=== PATIENT | female | born 1955 | race Caucasian/White ===

== ENCOUNTER 2016-12-31 20:34 | Emergency (ER) | payer BC ==
[2016-12-31 21:04] VITALS: BP 104/63; PULSE 67; TEMP 98.2; BMI 20.6
[2016-12-31] MEDS ORDERED: KETOROLAC TROMETHAMINE 60 MG/2 ML VIAL ONE ×2 (21:21→21:45)
[2016-12-31] MEDS ORDERED: KETOROLAC TROMETHAMINE 60 MG/2 ML VIAL IM ONE (21:42)
--- NOTE | 2016-12-31 21:52 | PDOC ---
History of Present Illness - General Chief Complaint: Pain Stated Complaint: RIGTH RIBCAGE PAIN Time Seen by Provider: 12/31/16 21:15 - History of Present Illness Initial Comments: 12/31/16 21:41 Patient complains of right rib chest wall pain. States was reaching to protect infant granddaughter when she slipped and fell landing with her right mid rib midaxillary line against edge of the sofa. Patient has had severe rib pain since that time with difficulty taking deep inspiration. Denies shortness of breath, no other injury. Occurred: reports: last week Severity: reports: moderate Pain Location: reports: chest Method of Injury: Yes: fall Loss of Consciousness: no loss of consciousness Associated Symptoms (Fall): chest pain Past History - Travel Traveled outside of the country in the last 30 days: No Close contact w/someone who was outside of country & ill: No - Past Medical History Allergies/Adverse Reactions: Allergies Allergy/AdvReac Type Severity Reaction Status Date / Time No Known Allergies Allergy Verified 12/31/16 21:00 Home Medications: Ambulatory Orders Oxycodone HCl/Acetaminophen [Percocet 5-325 mg Tablet -] 1 - 2 tab PO Q4H PRN # 14 tablet MDD 4 12/31/16 Other medical history: Pt denies - Psycho/Social/Smoking Cessation Hx Suicidal Ideation: No Smoking History: Never smoked Information on smoking cessation initiated: No Hx Alcohol Use: No Drug/Substance Use Hx: No Substance Use Type: None Review of Systems - Review of Systems Able to Perform ROS?: Yes Is the patient limited Kiswahili proficient: Yes Constitutional: Yes: Symptoms Reported, See HPI, Malaise. No: Chills, Fever HEENTM: Yes: See HPI. No: Symptoms Reported Respiratory: Yes: Symptoms reported, See HPI, Other (pain to right chest wall ) ABD/GI: No: Symptoms Reported Musculoskeletal: Yes: Symptoms Reported, See HPI, Muscle Pain Integumentary: Yes: Symptoms Reported, See HPI, Bruising All Other Systems: Reviewed and Negative *Physical Exam - Vital Signs Last Vital Signs Temp Pulse Resp BP Pulse Ox 98.2 F 67 18 104/63 100 12/31/16 21:01 12/31/16 21:01 12/31/16 21:01 12/31/16 21:01 12/31/16 21:01 - Physical Exam General Appearance: Yes: Nourished, Appropriately Dressed, Apparent Distress, Moderate Distress HEENT: positive: KALYN, Normal ENT Inspection, Normal Voice, TMs Normal, Pharynx Normal Neck: positive: Supple. negative: Tender Respiratory/Chest: positive: Chest Tender, Lungs Clear. negative: Normal Breath Sounds (difficult to take deep inspirations secondary to exquisite pain to right mid axillary line chest wall. Has reproduced tenderness along rib border 678 without crepitus or step-offs noted.), Respiratory Distress Cardiovascular: positive: Regular Rhythm Musculoskeletal: positive: Normal Inspection Extremity: positive: Normal Capillary Refill, Normal Inspection, Normal Range of Motion Integumentary: positive: Normal Color, Bruising (faint bruising noted under right breast lateral aspect). negative: Ecchymosis Neurologic: positive: garland maker II-XII NML intact, Fully Oriented, Alert, Normal Response, Motor Strength / ED Treatment Course - RADIOLOGY Radiology Studies Ordered: Category Date Time Status RIBS RIGHT SIDE [RAD] Stat Radiology 12/31/16 21:16 Ordered Progress Note - Progress Note Progress Note: Eighth rib fracture right side nondisplaced, will treat with Percocet rest, *DC/Admit/Observation/Transfer Diagnosis at time of Disposition: Rib fracture Qualifiers: Encounter type: initial encounter Rib fracture type: single rib Fracture type: closed Laterality: right Qualified Code(s): S22.31XA - Fracture of one rib, right side, initial encounter for closed fracture - Discharge Dispostion Disposition: HOME Condition at time of disposition: Stable Admit: No - Patient Instructions Printed Discharge Instructions: DI for Rib Fracture Additional Instructions: Rest, ice to area on and off for 15 minutes 4-6 times a day Avoid heavy lifting or exercise until pain and swelling is resolved or until further directed Followup with orthopedist in one to 2 days if not improving, if significantly improved may wait one week for followup with orthopedist May use ibuprofen 2-200 mg tablets every 6 hours as needed for pain May take one or 2 tablets of Percocet for severe pain, understanding will make dizzy and sleepy
== END 2016-12-31 21:58 | disposition home or self-care (01) ==
LOC: JERFT 20:34
PROC: 3E0333Z Introduction of Anti-inflammatory into Peripheral Vein, Percutaneous Approach (ICD-10-PCS; principal; 2016-12-31)
DX: S22.31XA Fracture of one rib, right side, initial encounter for closed fracture (principal); W18.39XA Other fall on same level, initial encounter; Y93.89 Activity, other specified; Y92.9 Unspecified place or not applicable
CPT/HCPCS: 71101-TC-RT; 99281-25